=== PATIENT | female | born 2000 | race Caucasian/White ===

== ENCOUNTER 2023-01-21 07:31 | Inpatient (IN) | payer OTHER ==
[2023-01-21] VITALS (18 sets, daily range): BP systolic 130–154; BP diastolic 74–99; O2SAT 98
[~2023-01-21] VITALS: Ht 167.6 cm; Wt 87.9 kg
[2023-01-21] MEDS ORDERED: PRENTAB9 PO (07:47)
[2023-01-21] MEDS ORDERED: HOME MED LIST COMPLETE! XX SCH (08:00)
[2023-01-21 08:41] LABS: HEMATOCRIT 33.4 % (36.0-47.0); HEMOGLOBIN 11.7 g/dl (12.0-15.5); MEAN CORPUSCULAR HEMOGLOBIN 32.4 pg (27.0-33.0); MEAN CORPUSCULAR VOLUME 92.5 fl (80.0-96.0); PLATELET COUNT, AUTOMATED 203 10^3/uL (150-450); RED BLOOD COUNT 3.61 10^6/uL (4.00-5.40); WHITE BLOOD COUNT 11.4 10^3/uL (4.0-10.0)
[2023-01-21 09:01] LABS: URIC ACID 5.7 MG/DL (3.1-7.8)
[2023-01-21 09:04] LABS: LDH LACTATE DEHYDROGENASE 181 U/L (120-246)
[2023-01-21 09:05] LABS: ALT/SGPT 25 U/L (7.0-40); AST/SGOT 31 U/L (<34); BILIRUBIN,TOTAL 0.2 MG/DL (0.3-1.2); GLOMERULAR FILTRATION RATE > 60.0 (>60)
[2023-01-21 09:19] LABS: CREATININE,RANDOM URINE 34.5 MG/DL
[2023-01-21 09:20] LABS: TOTAL PROTEIN,RANDOM URINE < 6.0 MG/DL (0.0-14.0)
[2023-01-21] MEDS ORDERED: LACTATED RINGER'S 1000 ML IV STA (09:21)
[2023-01-21] MEDS ORDERED: PENICILLIN G POTASSIUM 5 MU IV 5 MU in D5W MINI-BAG PLUS 100 ML IV STA (09:21)
[2023-01-21] MEDS ORDERED: TRANEXAMIC ACID INJection 1,000 MG in NS 100 ML IV PRN (09:25)
[2023-01-21] MEDS ORDERED: OXYTOCIN DRIP 30 UNITS in IV 1 EA IV PRN ×6 (09:25)
[2023-01-21] MEDS ORDERED: LIDOCAINE 1% MDV 20ML VIAL INFIL PRN (09:25)
[2023-01-21] MEDS ORDERED: CARBOPROST TROMETHAMINE 250 MCG/ML AMP IM PRN (09:25)
[2023-01-21] MEDS ORDERED: METHYLERGONOVINE MALEATE 0.2MG/ML 1ML VIAL IM PRN (09:25)
[2023-01-21] MEDS: miSOPROStol 50MCG 1/2 TABLET PO SCH ×3 (09:38→18:49)
[2023-01-21] MEDS ORDERED: PEN G POT 3,000,000 UNIT/50 ML 3,000,000 UNIT in IV 1 EA IV SCH (13:25)
[2023-01-22] VITALS (46 sets, daily range): BP systolic 104–168; BP diastolic 55–112; O2SAT 96–100
[2023-01-22] MEDS: miSOPROStol 50MCG 1/2 TABLET PO SCH
[2023-01-22] MEDS ORDERED: PENICILLIN G POTASSIUM 5 MU IV 5 MU in D5W MINI-BAG PLUS 100 ML IV STA (00:10)
[2023-01-22] MEDS: LR 1,000 ML IV SCH ×3 (00:27→10:51)
[2023-01-22] MEDS ORDERED: ONDANSETRON 4MG 2ML VIAL IV PRN ×2 (03:45→12:35)
[2023-01-22] MEDS ORDERED: FENTANYL/ROPIVACAINE/NACL BAG 100 ML EPIDURAL SCH (03:45)
[2023-01-22] MEDS ORDERED: LR 500 ML IV PRN (03:45)
[2023-01-22] MEDS ORDERED: ePHEDrine SULFATE 25 MG/5 ML(5MG/ML) SYRINGE IVP PRN (03:45)
[2023-01-22] MEDS ORDERED: EPIDURAL/PCA KEYS XX PRN (03:45)
[2023-01-22] MEDS ORDERED: diphenhydrAMINE 50MG/ML VIAL IV PRN (03:45)
[2023-01-22] MEDS ORDERED: NALOXONE INJ 0.4MG/1ML VIAL IV PRN (03:45)
[2023-01-22] MEDS: PEN G POT 3,000,000 UNIT/50 ML 3,000,000 UNIT in IV 1 EA IV SCH ×2 (04:50→08:31)
[2023-01-22] MEDS ORDERED: OXYTOCIN DRIP 30 UNITS in IV 1 EA IV SCH ×3 (07:05→13:15)
[2023-01-22 12:20] LABS: CORD GAS HCO3 V 21.7 MMOL/L; CORD GAS O2 SAT V 72.1 %; CORD GAS PH V 7.292 UNITS; CORD GAS PO2 V 31.4 mmHg; CORD GAS SBC V 19.8 MMOL/L; CORD GAS TCO2 V 23.1 MMOL/L
[2023-01-22 12:23] LABS: CORD GAS HCO3 A 17.4 MMOL/L; CORD GAS O2 SAT A 77.2 %; CORD GAS PCO2 A 52.9 mmHg; CORD GAS PH A 7.136 UNITS; CORD GAS PO2 A 40.8 mmHg; CORD GAS SBC A 14.9 MMOL/L; CORD GAS TCO2 A 19.1 MMOL/L
[2023-01-22] MEDS ORDERED: RHOGAM 300MCG (1500IU) INJ IM SCH (12:35)
[2023-01-22] MEDS ORDERED: DIBUCAINE 1% OINTMENT 30GM TOP PRN (12:35)
[2023-01-22] MEDS ORDERED: DOCUSATE SODIUM 100MG CAPSULE PO PRN (12:35)
[2023-01-22] MEDS ORDERED: METHYLERGONOVINE MALEATE 0.2MG/ML 1ML VIAL IM PRN (12:35)
[2023-01-22] MEDS ORDERED: METOCLOPRAMIDE INJ 10MG/2ML VIAL IV PRN (12:35)
[2023-01-22] MEDS: IBUPROFEN 800 MG TAB PO SCH ×2 (14:00→21:53)
[2023-01-22] MEDS: ACETAMINOPHEN 500 MG TAB PO SCH ×2 (17:16→19:00)
[2023-01-23] MEDS: ACETAMINOPHEN 500 MG TAB PO SCH ×4 (01:00→19:35)
[2023-01-23 05:41] VITALS: BP 138/80; O2SAT 98
[2023-01-23] MEDS: IBUPROFEN 800 MG TAB PO SCH ×3 (06:00→22:00)
[2023-01-23 07:03] LABS: HEMATOCRIT 29.4 % (36.0-47.0); HEMOGLOBIN 10.2 g/dl (12.0-15.5); MEAN CORPUSCULAR HEMOGLOBIN 32.6 pg (27.0-33.0); MEAN CORPUSCULAR HGB CONC 34.7 g/dl (32.0-36.5); MEAN CORPUSCULAR VOLUME 93.9 fl (80.0-96.0); PLATELET COUNT, AUTOMATED 162 10^3/uL (150-450); RED BLOOD COUNT 3.13 10^6/uL (4.00-5.40)
[2023-01-23] MEDS: PRENATAL VITAMINS CHEWABLE TABLET PO SCH (07:40)
[2023-01-23] MEDS ORDERED: PRENATAL VITAMINS CHEWABLE TABLET PO SCH (09:00)
[2023-01-23 18:00] VITALS: BP 146/95; O2SAT 100
[2023-01-23 22:00] VITALS: BP 135/80; O2SAT 98
[2023-01-24] MEDS: ACETAMINOPHEN 500 MG TAB PO SCH ×2 (01:00→06:48)
[2023-01-24 06:00] VITALS: BP 127/54; O2SAT 98
[2023-01-24] MEDS: IBUPROFEN 800 MG TAB PO SCH (06:19)
[2023-01-24] MEDS: PRENATAL VITAMINS CHEWABLE TABLET PO SCH (08:15)
[2023-01-24] MEDS ORDERED: MEASLES,MUMPS,RUBELLA VACCINE INJ (MMR-II) SC.IMMUN ONE (09:00)
== END 2023-01-24 13:25 | disposition home or self-care (01) | DRG 807 ==
LOC: M LDI 07:31 → M OBS 01-22 14:58
PROVIDERS: ADMIT Advanced Practice Midwife; ATTEND Obstetrics & Gynecology
PROC: 3E0P7GC Introduction of Other Therapeutic Substance into Female Reproductive, Via Natural or Artificial Opening (ICD-10-PCS; 2023-01-21)
PROC: 10E0XZZ Delivery of Products of Conception, External Approach (ICD-10-PCS; principal; 2023-01-22)
DX: O14.04 Mild to moderate pre-eclampsia, complicating childbirth (principal); Z37.0 Single live birth; Z3A.37 37 weeks gestation of pregnancy; O99.824 Streptococcus B carrier state complicating childbirth

== ENCOUNTER 2023-06-03 21:25 | Inpatient (IN) | payer OTHER ==
[~2023-06-03] VITALS: Ht 157.5 cm; Wt 75.3 kg
[~2023-06-03 21:25] MED LIST: PRENTAB9 PO
[2023-06-03 21:53] LABS: HEMATOCRIT 41.4 % (36.0-47.0); HEMOGLOBIN 14.2 g/dl (12.0-15.5); MEAN CORPUSCULAR HEMOGLOBIN 31.3 pg (27.0-33.0); MEAN CORPUSCULAR HGB CONC 34.3 g/dl (32.0-36.5); MEAN CORPUSCULAR VOLUME 91.2 fl (80.0-96.0); PLATELET COUNT, AUTOMATED 256 10^3/uL (150-450); RED BLOOD COUNT 4.54 10^6/uL (4.00-5.40)
[2023-06-03 22:21] LABS: AMPHETAMINES LEVEL URINE NEGATIVE (NEGATIVE); BARBITURATES URINE NEGATIVE (NEGATIVE); BENZODIAZEPINES URINE NEGATIVE (NEGATIVE); CANNABINOIDS URINE NEGATIVE (NEGATIVE); COCAINE METABOLITE URINE NEGATIVE (NEGATIVE); METHADONE URINE NEGATIVE (NEGATIVE); OPIATES URINE NEGATIVE (NEGATIVE); PHENCYCLIDINE URINE NEGATIVE (NEGATIVE)
[2023-06-03 22:23] LABS: ETHYL ALCOHOL (ETHANOL) 0.063 % (0.000-0.010)
[2023-06-03 22:25] LABS: ALBUMIN 4.1 G/DL (3.2-5.2); ALKALINE PHOSPHATASE 42 U/L (46-116); ALT/SGPT 14 U/L (7.0-40); AST/SGOT 11 U/L (<34); BILIRUBIN,DIRECT 0.1 MG/DL (<0.4); BILIRUBIN,TOTAL 0.3 MG/DL (0.3-1.2); BLOOD UREA NITROGEN 12 MG/DL (9-23); CALCIUM LEVEL 9.1 MG/DL (8.5-10.1); CARBON DIOXIDE LEVEL 26 MMOL/L (20-31); CHLORIDE LEVEL 109 MMOL/L (98-107); CREATININE FOR GFR 0.84 MG/DL (0.55-1.30); GLOMERULAR FILTRATION RATE > 60.0 (>60); GLUCOSE, FASTING 88 MG/DL (60-100); POTASSIUM SERUM 3.8 MMOL/L (3.5-5.1); SALICYLATE LEVEL < 3.0 MG/DL (<30); SODIUM LEVEL 142 MMOL/L (136-145); TOTAL PROTEIN 6.9 G/DL (5.7-8.2)
[2023-06-03 22:27] LABS: THYROID STIMULATING HORMONE 1.406 uIU/ML (0.55-4.78)
[2023-06-03 22:50] LABS: HCG, SERUM QUALITATIVE NEGATIVE (NEGATIVE)
[2023-06-03] MEDS ORDERED: HOME MED LIST COMPLETE! XX SCH (23:15)
[2023-06-04] MEDS ORDERED: traZODone 50 MG TAB PO PRN (00:15)
[2023-06-04] MEDS ORDERED: ACETAMINOPHEN TAB 650MG DOSE (2X325MG) PO PRN (00:15)
[2023-06-04] MEDS ORDERED: MAALOX 30 ML SUSP *UDC PO PRN (00:15)
[2023-06-04] MEDS ORDERED: diphenhydrAMINE 25MG CAP PO PRN (00:15)
[2023-06-04] MEDS ORDERED: MOM 30ML SUSPENSION UDC PO PRN (00:15)
[2023-06-04 01:51] VITALS: BP 121/73; TEMP 97.9; O2SAT 97
[2023-06-04 06:43] VITALS: BP 109/62; TEMP 98.7; O2SAT 97
[2023-06-04] MEDS: NICOTINE 21MG/24HR 1 EA TRANSDERMAL TD SCH (12:29)
[2023-06-04] MEDS: FLUoxetine 10 MG CAP PO SCH (14:02)
[2023-06-04 16:17] VITALS: BP 136/82; TEMP 98; O2SAT 99
[2023-06-05 06:38] VITALS: BP 95/64; TEMP 97.9; O2SAT 97
[2023-06-05 16:24] VITALS: BP 126/73; TEMP 97.4; O2SAT 97
[2023-06-06 06:33] VITALS: BP 125/66; TEMP 98.5; O2SAT 100
[2023-06-06 17:42] VITALS: BP 138/81; TEMP 97.6
[2023-06-06] MEDS: IBUPROFEN 400MG TAB PO PRN (18:17)
[2023-06-07 06:21] VITALS: BP 92/50; TEMP 97.5; O2SAT 100
[2023-06-07] MEDS ORDERED: FLUO10CA18 PO (07:08)
[2023-06-07 08:03] VITALS: BP 92/50; TEMP 97.5; O2SAT 100
== END 2023-06-07 11:48 | disposition home or self-care (01) | DRG 881 ==
LOC: M ED 21:25 → M ED INP 06-04 00:11 → M PSY 06-04 01:20
PROVIDERS: ADMIT Student in an Organized Health Care Education/Training Program; ATTEND Student in an Organized Health Care Education/Training Program
DX: F53.0 Postpartum depression (principal); F17.290 Nicotine dependence, other tobacco product, uncomplicated

== ENCOUNTER 2023-10-14 21:21 | Emergency (ER) | payer OTHER ==
[~2023-10-14] VITALS: Ht 167.6 cm; Wt 74.8 kg
[~2023-10-14 21:21] MED LIST changes: +FLUO-290 PO
[2023-10-14 21:22] VITALS: BP 118/65; TEMP 97.7; O2SAT 99
[2023-10-14 22:29] LABS: BASO % 0.4 % (0.0-1.0); EOS # 0.2 10^3/uL (0.0-0.5); EOS % 1.7 % (0.0-3.0); HEMATOCRIT 35.9 % (36.0-47.0); HEMOGLOBIN 12.2 g/dl (12.0-15.5); LYMPH # 2.3 10^3/uL (1.5-5.0); LYMPH % 25.3 % (24.0-44.0); MEAN CORPUSCULAR HEMOGLOBIN 31.3 pg (27.0-33.0); MEAN CORPUSCULAR VOLUME 92.1 fl (80.0-96.0); MONO # 0.8 10^3/uL (0.0-0.8); MONO % 8.9 % (2.0-8.0); NEUTROPHILS # 5.7 10^3/uL (1.5-8.5); NEUTROPHILS % 63.5 % (36.0-66.0); PLATELET COUNT, AUTOMATED 243 10^3/uL (150-450); WHITE BLOOD COUNT 8.9 10^3/uL (4.0-10.0)
[2023-10-14 22:55] LABS: LIPASE 25 U/L (12-53)
[2023-10-14 22:57] LABS: ALBUMIN 3.6 G/DL (3.2-5.2); ALKALINE PHOSPHATASE 40 U/L (46-116); ALT/SGPT 15 U/L (7.0-40); AST/SGOT < 8 U/L (<34); BILIRUBIN,DIRECT < 0.1 MG/DL (<0.4); BILIRUBIN,TOTAL 0.2 MG/DL (0.3-1.2); BLOOD UREA NITROGEN 12 MG/DL (9-23); CARBON DIOXIDE LEVEL 27 MMOL/L (20-31); CHLORIDE LEVEL 105 MMOL/L (98-107); GLOMERULAR FILTRATION RATE > 60.0 (>60); GLUCOSE, FASTING 112 MG/DL (60-100); POTASSIUM SERUM 3.7 MMOL/L (3.5-5.1); SODIUM LEVEL 137 MMOL/L (136-145); TOTAL PROTEIN 6.4 G/DL (5.7-8.2)
[2023-10-14 23:03] LABS: HCG, SERUM QUALITATIVE POSITIVE (NEGATIVE)
[2023-10-14 23:32] LABS: HCG, SERUM QUANTITATIVE 115429.5 MIU/ML (<4.2)
[2023-10-15] MEDS: METOCLOPRAMIDE INJ 10MG/2ML VIAL IV ONE (00:09)
[2023-10-15] MEDS: NS 1,000 ML IV ONE (00:10)
[2023-10-15] MEDS ORDERED: REGL10TA6 PO (01:02)
== END 2023-10-15 01:25 | disposition left against medical advice (07) ==
LOC: M ED 21:21
DX: O21.1 Hyperemesis gravidarum with metabolic disturbance (principal); O30.041 Twin pregnancy, dichorionic/diamniotic, first trimester; O26.891 Other specified pregnancy related conditions, first trimester; N83.11 Corpus luteum cyst of right ovary; Z87.891 Personal history of nicotine dependence; Z3A.01 Less than 8 weeks gestation of pregnancy; Z79.899 Other long term (current) drug therapy; Z53.9 Procedure and treatment not carried out, unspecified reason
CPT/HCPCS: 76801; 76802; 76817; 80048; 80076; 83690; 84702; 84703; 85025; 96374; 99284; J2765